=== PATIENT | female | born 1945 | race Two or more races ===

== ENCOUNTER → 2024-01-11 11:30 | Outpatient (REF) | payer OTHER, SELFPAY | LOC: HWRAD 11:30 | PROVIDERS: ATTENDING PHYSICIAN Physician Assistant Medical | DX: M85.80 Other specified disorders of bone density and structure, unspecified site (principal) | CPT/HCPCS: 77080 ==

== ENCOUNTER → 2024-02-29 13:55 | Outpatient (REF) | payer OTHER, SELFPAY | LOC: WDC 13:55 | PROVIDERS: ATTENDING PHYSICIAN Physician Assistant Medical | DX: Z12.31 Encounter for screening mammogram for malignant neoplasm of breast (principal) | CPT/HCPCS: 77063; 77067 ==

== ENCOUNTER 2025-03-16 15:03 | Emergency (ER) | payer OTHER, SELFPAY ==
[2025-03-16 15:14] VITALS: BP 130/78
[2025-03-16 16:04] LABS: ALT (SGPT) 15 U/L (0-35); AST (SGOT) 20 U/L (14-36); Albumin 4.1 g/dl (3.5-5.0); Alkaline Phosphatase 75 U/L (38-126); Blood Urea Nitrogen 16 mg/dl (7-17); Calcium 9.7 mg/dl (8.4-10.2); Carbon Dioxide 25 mmol/L (22-30); Chloride 107 mmol/L (98-107); Glucose 156 mg/dl (70-99); Potassium 4.3 mmol/L (3.5-5.1); Sodium 138 mmol/L (135-145); Total Protein 7.5 g/dl (6.3-8.2); eGFR 56.95
[2025-03-16 16:05] LABS: Hematocrit 40.1 % (37.0-47.0); Hemoglobin 13.9 g/dL (12.0-16.0); Mean Corp Hgb Conc. 34.7 g/dL (33.0-37.0); Mean Corpuscular Volume 90.1 fL (81.0-99.0); Nucleated Red Blood Cells % 0 %; Platelet Count 289 10^3/uL (130-400); Red Cell Dist. Width 11.9 % (11.5-14.5)
[2025-03-16 18:15] VITALS: BMI 26.3
[2025-03-16 18:16] VITALS: BP 144/86
[2025-03-16] MEDS: TORADOL 15 MG IV (18:17)
[2025-03-16] MEDS: NSS 1000 IV (18:18)
--- NOTE | 2025-03-16 18:22 | PTCARENOTE ---
patient endorses headache only when swallowing, and because of the pain, daughter states she has not eaten much at all since due to fear of pain. patient currently denies any pain.
[2025-03-16 18:28] LABS: C-Reactive Protein < 5.00 mg/L (0.0-10.00)
--- NOTE | 2025-03-16 18:32 | ED.GENMED ---
History of Present Illness
General
Chief Complaint: Headache
Source: patient and family
Exam Limitations: none
Time Seen by Provider: 03/16/25 17:12
Nursing documentation reviewed up to this point in time: agreed with
History of Present Illness
History of Present Illness:
Patient is an 79-year-old female with history hypertension, hyperlipidemia who presents to the emergency department with concerns of right-sided headache for the past 4 weeks. Patient describes initially a very intermittent headache in her right
frontal region which began about 4 weeks ago. No clear correlation to certain positions or time of day. She was seen by her primary care provider about 3 weeks ago who was not concerned. About 2.5 weeks ago she was also seen by her eye doctor who
performed a thorough eye exam and found no evidence of clear ocular etiology.
Over this past weekend, patient's daughter states that her mom began complaining of the same headache in the right frontal region only when she swallows. She has not been eating/drinking much given discomfort with swallowing. She denies any pain
in her throat with swallowing however reports a referred pain to her right forehead when she swallows. She denies any associated fever, chills, neck pain. She has not had any visual changes, changes in hearing. No dizziness, ataxia, dysarthria,
or change in mental status. No sore throat, dysphagia, or dyne aphasia. No other viral symptoms including productive cough, nasal congestion.
Patient's primary care did perform a CT scan of her head without any acute findings however given patient's little p.o. intake over the past few days was sent for IV fluids and further evaluation.
Outpatient lab work did reveal positive Lyme test including IgM antibodies. Her PCP has ordered a Western blot which has not resulted. Patient has not noticed any rash or had any known tick bite.
Review of Systems
Review of Systems
Allergies reviewed?: Yes
All Other Systems: ROS reviewed and negative except as documented in HPI and ROS
Phy Exam
Physical Exam
Physical Exam:
Vitals: Mildly hypertensive, otherwise vital signs stable. Afebrile
General: Patient is well appearing, no acute distress. Nontoxic appearing
Skin: Warm and dry, no rashes or lesions
Head: Normocephalic, atraumatic. No tenderness over temporal arteries bilaterally. No reproducible tenderness or evidence of erythema or rash in the right frontal scalp.
Eyes: Sclera nonicteric. Pupils equal round and reactive to light bilaterally. EOMs intact. No nystagmus.
Throat: No pharyngeal erythema. No tonsillar edema or exudates. Uvula midline without evidence of STEAM FITTER SUPERVISOR MAINTENANCE. Protecting airway
Neck: Normal ROM, no cervical spine tenderness, no meningismus
Cardiac: Regular rate and rhythm, no murmurs.
Pulm: Normal respiratory effort, no wheezes, rales, rhonchi heard on exam
Abdomen: Abdomen soft and nontender.
Extremities: No evidence of cyanosis or edema. Strength 5/5 in bilateral upper and lower extremities with normal sensation
Neuro: AAOx3. CN II-XII grossly intact. No facial droop or asymmetry. Normal [id number]. Steady gait. No focal neurologic deficits.
Psychiatric: Normal affect.
Course
Orders/Labs/Results
Orders:
Orders
03/16/25 15:24
C-Reactive Protein Urgent
Comment: ADDON
Complete Blood Count/With Diff Urgent
Comprehensive Metabolic Panel Urgent
Erythrocyte Sed Rate Urgent
Comment: ADDON
03/16/25 17:35
0.9% Sodium Chloride 1000 ml [Nss] 1,000 ml IV BOLUS
Ketorolac [Toradol] 15 mg IV NOW STA
03/16/25 17:42
Add On- LAB Urgent
Tests Added?: ESR, CRP
03/16/25 20:57
Doxycycline [Vibramycin] 100 mg PO NOW STA
Abnormal Lab Results
03/16/25
15:24
MCH 31.2 H pg
(27.0-31.0)
Lymphocytes % 19.1 L %
(20.5-51.1)
ESR 41 H mm/hour
(0-20)
Glucose 156 H mg/dl
(70-99)
03/16/25 15:24
03/16/25 15:24
Vital Signs
Initial and Last Documented VS:
Initial Vital Signs
Temp Pulse Resp BP Pulse Ox
98.4 F 80 18 130/78 95
03/16/25 15:14 03/16/25 15:14 03/16/25 15:14 03/16/25 15:14 03/16/25 15:14
Last Documented Vital Signs
Temp Pulse Resp BP Pulse Ox
97.8 F 68 16 157/90 100
03/16/25 21:18 03/16/25 21:18 03/16/25 21:18 03/16/25 21:18 03/16/25 21:18
MDM/Problems Addressed
Differential Diagnosis Includes:
Not limited to: Viral illness, tension headache, migraine headache, cluster headache, temporal arteritis, acute dehydration, occipital neuralgia, pharyngitis, etc.
MDM/Problems Addressed:
79 year-old female presenting with four weeks of atypical headache. She had negative work up with her eye doctor a few weeks ago. Now headache exacerbated with swallowing only. No other infectious symptoms or neurological symptoms. Negative
outpatient CT imaging of her head. Her PCP did send Lyme testing which was positive.
Vitals as above. On exam � patient well appearing, in no distress. She is A & O without focal neurologic deficits. No pharyngeal erythema or tonsillar edema. She has no neck asymmetry or palpable lymphadenopathy. No tenderness overlying temporal
arteries bilaterally. No trismus.
I did review CT imaging of head which shows no acute intracranial abnormalities. Her lab tests outpatient do show a positive line tighter and IGM antibodies. Otherwise lab work in ED unremarkable. Inflammatory markers were added on. ESR somewhat
elevated 44 however CRP is completely undetectable.
Do not have high suspicion for temporal arthritis, especially with negative CRP and no tenderness over temporal arteries.
She has no infectious symptoms on exam. Do not suspect oropharyngeal etiology. No evidence of neck infection.
Possibly related to positive Lyme test? Patient received a liter of IV fluids and Toradol and has been swallowing without difficulty and has had some improvement in symptoms.
Will initiate treatment for Lyme disease with doxycycline. Otherwise � feel stable for discharge home with continued primary care follow up. Discussed possible need for MRI if symptoms persist. Very strict return precautions discussed including any
signs of worsening symptoms. Patient and patient�s daughter comfortable with plan. Patient seen with attending physician.
Chronic conditions affecting care:
Hypertension
Acute Exacerbation and/or Progression of Chronic Illness:
Acutely hypertensive
*Pulse Oximetry
SaO2: 96
Oxygen Mode of Delivery: Room air
Patient hypoxic: no
*EKG
Interpreted by ED Provider?: NA
*Computer Security Manager Interpretation
Rate: Computer Security Manager- N/A
*Critical Care Note
Total Time (30-74mins, 75-104mins- exclusive of procedures): Not Applicable
Data Reviewed
Review of Other/Old Records Reveals: Radiology Studies (I reviewed outpatient CT head which showed no acute findings)
Patient Management
Discussion with other providers: Instrument Engineer (Case discussed with ED attending physician)
ED Attending Note
-
Portions of this chart may have been created with voice recognition software.� Occasional wrong word or��sound alike� substitutions may have occurred due to the inherent limitations of voice recognition software.
Discharge Plan
Departure
Patient Disposition: Home (Routine Discharge)
Date of Disposition: 03/16/25
Time of Disposition: 20:58
Patient with high blood pressure during this ER visit?: Yes
Condition: Good
Covid-19: Negative COVID-19
Discharge Problem:
Headache
Instructions: Headache, Adult (DC), Lyme Disease (DC), BLOOD PRESSURE
Prescriptions:
New
doxycycline monohydrate 100 mg capsule
100 mg PO BID 14 Days Qty: 28 0RF
Referrals:
Xiomara Collins PA [Family Provider, Family Practice] - Follow up in 2-3 days
Activity Restrictions/Additional Instructions:
RETURN TO THE EMERGENCY DEPARTMENT WITH ANY SEVERE HEADACHE OR NECK PAIN, FEVERS, CHANGES IN VISION, DIZZINESS OR ATAXIA, CHANGES IN MENTAL STATUS, DIFFICULTY IN SWALLOWING, WORSENING IN CURRENT SYMPTOMS, OR ANY OTHER CONCERNS
- As discussed�your lab work revealed anlevated inflammatory marker, ESR. Please follow this up with your primary care doctor as this may require further workup. Otherwise your lab work was unremarkable.
- We are unsure the exact cause of your headache today however it may be related to your Lyme disease.
- A prescription for doxycycline has been sent to the pharmacy. Please continue to take this medication until the additional testing for Lyme disease results and you discuss w/ your primary care doctor.
- You can take Tylenol and/or Motrin as needed for headache. It is important to stay very well-hydrated.
- Follow-up with PCP for further evaluation/management to ensure your symptoms improve. You may require additional MRI imaging or rheumatology follow-up
Monitor your symptoms closely and return to the emergency department with any acute worsening/new symptoms or any other concerns
Interventions
Interventions:
*Risk Screen - Suicide Last Done: 03/16/25 15:19
*General Assessment Last Done: 03/16/25 15:19
*Neglect/Abuse Screening Last Done: 03/16/25 15:19
*ED- Fall Risk Assessment Last Done: 03/16/25 18:43
*ED COVID-19 Vaccine History Last Done: 03/16/25 15:19
*Nursing Disposition Last Done: 03/16/25 21:18
ED- Neurological Assessment Last Done: 03/16/25 18:21
Discharge Date and Time
Discharge Date/Time: 03/16/25 21:24
Print Language: KAZAKH
[2025-03-16] MEDS: VIBRAMYCIN 100 MG PO (21:13)
[2025-03-16 21:18] VITALS: BP 157/90
== END 2025-03-16 21:24 | disposition home or self-care (01) ==
LOC: EMR 15:03
PROVIDERS: Emergency Medicine; EMERGENCY PHYSICIAN Emergency Medicine; FAMILY PHYSICIAN Physician Assistant Medical
DX: R51.9 Headache, unspecified (principal); I10 Essential (primary) hypertension; E78.5 Hyperlipidemia, unspecified
CPT/HCPCS: 99284; 96374; 96361 ×2; 70450; 80053; 85025; 85652; 86140

== ENCOUNTER → 2025-04-28 10:00 | Outpatient (REF) | payer OTHER, SELFPAY | LOC: RAD 10:00 | PROVIDERS: ATTENDING PHYSICIAN Student in an Organized Health Care Education/Training Program; FAMILY PHYSICIAN Physician Assistant Medical | DX: R13.10 Dysphagia, unspecified (principal) | CPT/HCPCS: 74210 ==

== ENCOUNTER → 2025-05-06 09:02 | Outpatient (REF) | payer OTHER, SELFPAY | LOC: RST 09:02 | PROVIDERS: ATTENDING PHYSICIAN Student in an Organized Health Care Education/Training Program; FAMILY PHYSICIAN Physician Assistant Medical | DX: R13.10 Dysphagia, unspecified (principal) | CPT/HCPCS: 74230; 92611 ==

== ENCOUNTER → 2025-05-07 14:08 | Outpatient (REF) | payer OTHER, SELFPAY | LOC: WDC 14:08 | PROVIDERS: ATTENDING PHYSICIAN Physician Assistant Medical | DX: Z12.31 Encounter for screening mammogram for malignant neoplasm of breast (principal) | CPT/HCPCS: 77063; 77067 ==

== ENCOUNTER → 2025-05-22 14:33 | Outpatient (REF) | payer OTHER, SELFPAY | LOC: MRI 3T 14:33 | PROVIDERS: ATTENDING PHYSICIAN Student in an Organized Health Care Education/Training Program; FAMILY PHYSICIAN Physician Assistant Medical | DX: R51.9 Headache, unspecified (principal) | CPT/HCPCS: 70553; A9575 ==

== ENCOUNTER → 2025-05-26 10:53 | Outpatient (REF) | payer OTHER, SELFPAY | LOC: PAVMRI 10:53 | PROVIDERS: ATTENDING PHYSICIAN Student in an Organized Health Care Education/Training Program; FAMILY PHYSICIAN Physician Assistant Medical | DX: R51.9 Headache, unspecified (principal) | CPT/HCPCS: 70543; A9575 ==

== ENCOUNTER 2025-06-16 12:48 | Emergency (ER) | payer OTHER, SELFPAY ==
[2025-06-16 12:49] VITALS: BP 180/92
[2025-06-16 13:02] VITALS: BP 119/87
[2025-06-16 13:04] VITALS: BMI 25.8
[2025-06-16 14:00] VITALS: BP 141/96
--- NOTE | 2025-06-16 14:10 | ED.GENMED ---
History of Present Illness
General
Chief Complaint: Throat Problem
Time Seen by Provider: 06/16/25 13:10
History of Present Illness
History of Present Illness:
This 80-year-old female with past medical history of high blood pressure hyperlipidemia who was seen in the emergency department for headaches at the beginning of the month presenting today for continued headaches that have been unresolved with
outpatient management. Patient reports that pain only occurs when she swallows and because of that she has been not wanting to eat or drink anything due to the pain. She was started on gabapentin by ENT with some relief but now states that this is
not helping. Had outpatient MRI brain, face head and neck MRI, barium swallow study all without any abnormalities identified. She did see a dentist recently and had 2 teeth extracted and was hopeful that this would be the source of the pain.
However since the extraction pain has not improved.
Phy Exam
General Physical Exam
General Presentation: well appearing and no apparent distress
General Skin: warm and dry
General Habitus: normal
General Mental: alert
General Hydration: appears well hydrated
ENT Exam
ENT Exam: EOMI, pharynx normal, neck supple and normocephalic
Eye Exam
Eye Exam: PERRL, cornea clear and conjunctiva normal
Cardiovascular Exam
Cardiovascular Exam: regular rate/rhythm, no edema, no murmur and normal peripheral pulses
Pulmonary Exam
Pulmonary Exam: lungs clear, no respiratory distress, no rales, no crackles, no rhonchi, no stridor, no wheezing and no cough
Gastrointestinal Exam
Gastrointestinal Exam: normal bowel sounds, non tender, soft, no organomegaly, no pulsatile mass and non distended
Neurological Exam
Neurological Exam: alert, oriented x3, no motor deficits and speech normal
Musculoskeletal Exam
Musculoskeletal Exam: full ROM and no edema
Skin Exam
Skin Exam: normal color, warm/dry, no rash and no petechia
Psychiatric Exam
Psychiatric Exam: normal mood/affect
Course
Orders/Labs/Results
Orders:
Orders
06/16/25 14:13
0.9% Sodium Chloride 500 ml [Nss] 500 ml IV BOLUS
06/16/25 14:28
Basic Metabolic Panel Urgent
Complete Blood Count/With Diff Urgent
Abnormal Lab Results
06/16/25
14:28
Neutrophils % 77.4 H %
(42.2-75.2)
Lymphocytes % 14.0 L %
(20.5-51.1)
BUN 26 H mg/dl
(7-17)
Creatinine 1.3 H mg/dL
(0.6-1.0)
Glucose 118 H mg/dl
(70-99)
06/16/25 14:28
06/16/25 14:28
Vital Signs
Initial and Last Documented VS:
Initial Vital Signs
Temp Pulse Resp BP Pulse Ox
36.4 C 65 20 180/92 99
06/16/25 12:49 06/16/25 12:49 06/16/25 12:49 06/16/25 12:49 06/16/25 12:49
Last Documented Vital Signs
Temp Pulse Resp BP Pulse Ox
36.4 C 74 17 141/96 99
06/16/25 12:49 06/16/25 14:45 06/16/25 14:45 06/16/25 14:00 06/16/25 14:13
MDM/Problems Addressed
Differential Diagnosis Includes:
Etiology of headaches remains unknown. Thorough workup as an outpatient has been unremarkable at this time. Lab work obtained and shows slight elevation in her creatinine to 1.3. Given 500 cc bolus. Patient reports feeling improved after this
fluid bolus and is headache free at this time. She has follow-up with neurology scheduled in 2 weeks. Discussed importance to stay well-hydrated as dehydration can certainly exacerbate her symptoms. Continue with Tylenol Motrin and gabapentin for
pain. Return to the ER if she develops any worsening of her headache or they begin to become associate with other symptoms such as nausea vomiting or change in vision. Daughter was present throughout the entire ED course and all questions were
answered.
*Pulse Oximetry
SaO2: 99
Oxygen Mode of Delivery: Room air
Patient hypoxic: no
*Critical Care Note
Total Time (30-74mins, 75-104mins- exclusive of procedures): Not Applicable
ED Attending Note
-
Portions of this chart may have been created with voice recognition software.� Occasional wrong word or��sound alike� substitutions may have occurred due to the inherent limitations of voice recognition software.
Discharge Plan
Departure
Patient Disposition: Home (Routine Discharge)
Date of Disposition: 06/16/25
Time of Disposition: 15:18
Patient with high blood pressure during this ER visit?: No
Discharge Problem:
Headache, Pain on swallowing
Prescriptions:
No Action
doxycycline monohydrate 100 mg capsule
100 mg PO BID 14 Days Qty: 28 0RF
Referrals:
Xiomara Collins PA [Family Provider, Family Practice]
Activity Restrictions/Additional Instructions:
You have follow-up with your specialist team including neurology for your headaches while swallowing. Return to the ER if you develop any worsening of your symptoms or develop any new and concerning symptoms such as change in vision, nausea,
vomiting associated with these headaches. Is important stay well-hydrated.
Interventions
Interventions:
*General Assessment Last Done: 06/16/25 12:49
*Neglect/Abuse Screening Last Done: 06/16/25 12:49
*ED COVID-19 Vaccine History Last Done: 06/16/25 13:04
*ED Influenza Vaccine History Last Done: 06/16/25 13:04
[facility] Fall Risk Assessment Tool Last Done: 06/16/25 13:04
*Risk Screen - Suicide (C-SSRS) Last Done: 06/16/25 14:59
ED-EENT Assessment Last Done: 06/16/25 13:04
ED- Pulmonary Assessment Last Done: 06/16/25 13:04
Discharge Date and Time
Print Language: SPANISH
[2025-06-16] MEDS: NSS 500 IV (14:31)
[2025-06-16 14:43] LABS: Hematocrit 42.7 % (37.0-47.0); Hemoglobin 14.6 g/dL (12.0-16.0); Mean Corp Hgb Conc. 34.2 g/dL (33.0-37.0); Mean Corpuscular Volume 86.4 fL (81.0-99.0); Nucleated Red Blood Cells % 0 %; Platelet Count 282 10^3/uL (130-400); Red Cell Dist. Width 11.8 % (11.5-14.5)
[2025-06-16 14:50] LABS: Blood Urea Nitrogen 26 mg/dl (7-17); Calcium 9.1 mg/dl (8.4-10.2); Carbon Dioxide 24 mmol/L (22-30); Chloride 104 mmol/L (98-107); Estimated Creatinine Clearance 25 ml/min; Glucose 118 mg/dl (70-99); Potassium 4.5 mmol/L (3.5-5.1); Sodium 135 mmol/L (135-145); eGFR 41.31
== END 2025-06-16 15:40 | disposition home or self-care (01) ==
LOC: EMR 12:48
PROVIDERS: Surgery Trauma Surgery; EMERGENCY PHYSICIAN Emergency Medicine; FAMILY PHYSICIAN Physician Assistant Medical
DX: R51.9 Headache, unspecified (principal); R13.19 Other dysphagia; E78.5 Hyperlipidemia, unspecified
CPT/HCPCS: 99283; 80048; 85025